=== PATIENT | male | born 1955 | race Caucasian/White ===

== ENCOUNTER 2018-06-14 19:04 | Emergency (ER) | payer OTHER, SELFPAY ==
--- NOTE | 2018-06-14 19:06 | W.ED.GENAD ---
Discharge Plan Disposition Patient Disposition: HOME Condition: Stable Discharge Details Chief Complaint: Orthopedic Clinical Impression: Contusion of elbow, left Primary Care Provider: Rossy Garcia ED Provider: [facility] Home Meds and New Rx's Prescriptions: No Action Atorvastatin Calcium 20 MG tablet 20 mg PO DAILY Qty: 90 RF: 3 imipramine HCl 25 MG tablet 25 mg PO HS Qty: 90 RF: 3 codeine-guaifenesin [Guaifenesin AC] 473 ML liquid 5 - 10 ml PO Q6H PRN Qty: 240 RF: 0 Discharge Instructions Instructions: Contusion in Adults (ED) Additional Instructions: if pain continues in one week see your primary care provider you can take 1000mg tylenol and 600mg ibuprofen every 6 hours for pain as needed Medical Decision Making 62 yo male was at work at the [employer], 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 Did not strike his head or have loc, no headache or neck pain even on rom. Had no preceding symptoms to suggest presyncope vs syncope, states purely mechanical fall. He has pain over lateral left elbow, no palpable or visible deformity .Has full rom without swelling and intact sensation. Doubt fx but will xray to eval for this xray negative on my read, will d/c and advised f/u with pcp if still in pain in a week Differential Diagnosis contusion, fx HPI General Mode of arrival: ambulatory. Date/Time Provider Initiated Documentation: 06/14/18 19:06. Limitations to Documentation: no limitations. Information obtained by: patient. History of Present Illness 62 year old M presents to the emergency department with the chief complaint of left elbow pain, described as mild, Quality is described as aching, and is localized to the left and upper extremity. Patient reports no radiation. Patient started experiencing this hour(s) (1) and it has been constant. No relieving factors improve symptom(s), No exacerbating factors reported . Patient notes no other symptoms.. Patient did receive the following treatments prior to arrival, none Related Data Home Medications Medication Instructions Recorded Confirmed imipramine HCl 25 mg PO HS #90 tab-cap 07/21/17 codeine-guaifenesin [Guaifenesin 5 - 10 ml PO Q6H PRN #240 ml 08/02/17 Ac Cough Syrup] Previous Rx's Medication Instructions Recorded imipramine HCl 25 mg PO HS #90 tab-cap 07/21/17 codeine-guaifenesin [Guaifenesin 5 - 10 ml PO Q6H PRN #240 ml 08/02/17 Ac Cough Syrup] Allergies Allergy/AdvReac Type Severity Reaction Status Date / Time No Known Allergies Allergy Unverified 09/16/17 11:15 Review of Systems Review of Systems All systems reviewed & are unremarkable except as noted in HPI and below Constitutional Denies chills, Denies fever(s) and Denies weakness Cardiovascular Denies chest pain and Denies dyspnea Respiratory Denies dyspnea Gastrointestinal Denies abdominal pain, Denies nausea and Denies vomiting Integumentary/Breasts Denies rash Neurologic Denies weakness PFS Medical History Cholecystitis with cholelithiasis and choledocholithiasis (04/26/16) GERD (gastroesophageal reflux disease) HLD (hyperlipidemia) IFG (impaired fasting glucose) Pneumonia (~1989) Surgical History Cholecystectomy (04/28/16) Colonoscopy - IV Sedation (10/07/16) ERCP (04/27/16) Transurethral prostatectomy (05/21/16) Family History Mother Stroke MS (multiple sclerosis) Father Heart disease Myocardial infarction Lung cancer Brother Diabetes Maternal Uncle Diabetes Maternal Uncle Neoplasm Maternal Uncle Neoplasm Social History Smoking/Tobacco Use Status: Never Alcohol Intake: current Drug use: Never Substance use type: marijuana Do you feel safe in your relationship?: Yes Exam Const General: no acute distress Orientation: alert HENMT Head: normal to inspection Ears: external ears normal General nose exam: external nose normal Mouth: moist mucous membranes Eyes General: appearance normal, both eyes and all related structures Neck Neck: normal visual inspection Resp Effort & Inspection: normal respiratory effort and able to speak in complete sentences Cardio Rate: regular rate Skin General skin exam: no rashes or lesions noted Neuro General: alert and oriented x3 Extrem General: normal to inspection Psych Mental Status: mental status grossly normal
[2018-06-14 19:08] VITALS: BP 138/95; PULSE 95; RESP 18; TEMP 37; O2SAT 98
--- NOTE | 2018-06-14 19:10 | DI.RAD_ITS ---
SYMPTOM/DIAGNOSIS: PAIN, S/P FALL LEFT ELBOW: There is no evidence of a fracture or dislocation.
--- NOTE | 2018-06-14 19:13 | ED.GENADUL_ITS ---
Discharge Plan Disposition Patient Disposition: HOME Condition: Stable Discharge Details Chief Complaint: Orthopedic Clinical Impression: Contusion of elbow, left Primary Care Provider: Rossy Garcia ED Provider: [facility] Home Meds and New Rx's Prescriptions: No Action Atorvastatin Calcium 20 MG tablet 20 mg PO DAILY Qty: 90 RF: 3 imipramine HCl 25 MG tablet 25 mg PO HS Qty: 90 RF: 3 codeine-guaifenesin [Guaifenesin AC] 473 ML liquid 5 - 10 ml PO Q6H PRN Qty: 240 RF: 0 Discharge Instructions Instructions: Contusion in Adults (ED) Additional Instructions: if pain continues in one week see your primary care provider you can take 1000mg tylenol and 600mg ibuprofen every 6 hours for pain as needed Medical Decision Making 62 yo male was at work at the [employer], 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 Did not strike his head or have loc, no headache or neck pain even on rom. Had no preceding symptoms to suggest presyncope vs syncope, states purely mechanical fall. He has pain over lateral left elbow, no palpable or visible deformity .Has full rom without swelling and intact sensation. Doubt fx but will xray to eval for this xray negative on my read, will d/c and advised f/u with pcp if still in pain in a week Differential Diagnosis contusion, fx HPI General Mode of arrival: ambulatory . Date/Time Provider Initiated Documentation: 06/14/18 19:06 . Limitations to Documentation: no limitations . Information obtained by: patient . History of Present Illness 62 year old M presents to the emergency department with the chief complaint of left elbow pain, described as mild, Quality is described as aching, and is localized to the left and upper extremity. Patient reports no radiation. Patient started experiencing this hour(s) (1) and it has been constant. No relieving factors improve symptom(s), No exacerbating factors reported . Patient notes no other symptoms.. Patient did receive the following treatments prior to arrival, none Related Data Home Medications Medication Instructions Recorded Confirmed imipramine HCl 25 mg PO HS #90 tab-cap 07/21/17 codeine-guaifenesin [Guaifenesin 5 - 10 ml PO Q6H PRN #240 ml 08/02/17 Ac Cough Syrup] Previous Rx's Medication Instructions Recorded imipramine HCl 25 mg PO HS #90 tab-cap 07/21/17 codeine-guaifenesin [Guaifenesin 5 - 10 ml PO Q6H PRN #240 ml 08/02/17 Ac Cough Syrup] Allergies Allergy/AdvReac Type Severity Reaction Status Date / Time No Known Allergies Allergy Unverified 09/16/17 11:15 Review of Systems Review of Systems All systems reviewed & are unremarkable except as noted in HPI and below Constitutional Denies chills, Denies fever(s) and Denies weakness Cardiovascular Denies chest pain and Denies dyspnea Respiratory Denies dyspnea Gastrointestinal Denies abdominal pain, Denies nausea and Denies vomiting Integumentary/Breasts Denies rash Neurologic Denies weakness PFS Medical History Cholecystitis with cholelithiasis and choledocholithiasis (04/26/16) GERD (gastroesophageal reflux disease) HLD (hyperlipidemia) IFG (impaired fasting glucose) Pneumonia (~1989) Surgical History Cholecystectomy (04/28/16) Colonoscopy - IV Sedation (10/07/16) ERCP (04/27/16) Transurethral prostatectomy (05/21/16) Family History Mother Stroke MS (multiple sclerosis) Father Heart disease Myocardial infarction Lung cancer Brother Diabetes Maternal Uncle Diabetes Maternal Uncle Neoplasm Maternal Uncle Neoplasm Social History Smoking/Tobacco Use Status: Never Alcohol Intake: current Drug use: Never Substance use type: marijuana Do you feel safe in your relationship?: Yes Exam Const General: no acute distress Orientation: alert HENMT Head: normal to inspection Ears: external ears normal General nose exam: external nose normal Mouth: moist mucous membranes Eyes General: appearance normal, both eyes and all related structures Neck Neck: normal visual inspection Resp Effort & Inspection: normal respiratory effort and able to speak in complete sentences Cardio Rate: regular rate Skin General skin exam: no rashes or lesions noted Neuro General: alert and oriented x3 Extrem General: normal to inspection Psych Mental Status: mental status grossly normal
--- NOTE | 2018-06-14 19:40 | DI.VRAD_ITS ---
EXAM: XR Left Elbow Complete, 3 or more Views EXAM DATE/TIME: 06/14/2018 7:11 PM CLINICAL HISTORY: 62 years old, male; Signs and symptoms; Other: Pain S/P fall TECHNIQUE: Imaging protocol: XR Left elbow, 3 or more views. COMPARISON: No relevant prior studies available. FINDINGS: Bones/joints: Osseous anatomic alignment is well preserved. No acutely displaced fracture or dislocation. Joint spaces are well preserved. Soft tissues: No significant soft tissue swelling. No displacement of the fat pads. IMPRESSION: Negative for acute skeletal pathology. Dictated and Authenticated by: Blake Hardy MD. Ordering:MARY Funes MD
== END 2018-06-14 19:36 | disposition home or self-care (01) ==
LOC: ER 20:19
PROVIDERS: Emergency Provider Emergency Medicine; PCP Nurse Practitioner Family
DX: S50.02XA Contusion of left elbow, initial encounter (principal); W01.0XXA Fall on same level from slipping, tripping and stumbling without subsequent striking against object, initial encounter; Y99.0 Civilian activity done for income or pay
CPT/HCPCS: 99283; 73080; 99282

== ENCOUNTER 2018-08-04 10:02 | Outpatient (CLI) | payer MEDICAID, SELFPAY ==
[2018-08-04 10:49] LABS: Hemoglobin A1C 5.4 % (4.5-6.2)
[2018-08-04 11:22] LABS: Calculated LDL 87; Cholesterol 161 mg/dL (50-200); HDL Cholesterol 60 mg/dL (40-60); Triglyceride 71 mg/dL (30-150)
== END 2018-08-04 10:22 ==
PROVIDERS: PCP Nurse Practitioner Family; Visit Provider Nurse Practitioner Family
DX: E78.5 Hyperlipidemia, unspecified (principal); R73.01 Impaired fasting glucose
CPT/HCPCS: 36415; 80061; 83721; 83036

== ENCOUNTER 2019-11-23 02:57 | Outpatient (CLI) | payer OTHER, MEDICAID, SELFPAY ==
[2019-11-23 14:07] LABS: Anion Gap 4.9 mmol/L (3-11); BUN 22 mg/dL (7-18); CO2 29.1 mmol/L (21.0-32.0); CREATININE 1.06 mg/dL (0.70-1.30); Calcium 8.9 mg/dL (8.5-10.1); Calculated LDL 74 mg/dL (<100); Chloride 105 mmol/L (98-107); Cholesterol 137 mg/dL (<200); Glucose 101 mg/dL (74-106); HDL Cholesterol 54 mg/dL (40-60); Potassium 4.5 mmol/L (3.5-5.1); Sodium 139 mmol/L (136-145); Triglyceride 46 mg/dL (<150)
[2019-11-23 14:29] LABS: Hemoglobin A1C 5.2 % (<5.7)
[2019-11-24 10:03] LABS: HIV-1/2 Ag & Ab Screen Negative (Negative)
[2019-11-24 10:16] LABS: Hepatitis C Ab w Rflx HCV PCR Negative (Negative)
== END 2019-11-23 03:17 ==
PROVIDERS: PCP Nurse Practitioner Family; Visit Provider Nurse Practitioner Family
DX: E78.5 Hyperlipidemia, unspecified (principal); R73.01 Impaired fasting glucose; Z11.4 Encounter for screening for human immunodeficiency virus [HIV]; Z11.59 Encounter for screening for other viral diseases
CPT/HCPCS: 80048; 80061; 86803; 87389; 83036

== ENCOUNTER 2020-12-04 02:45 | Outpatient (CLI) | payer OTHER, SELFPAY ==
[2020-12-04 07:59] LABS: HCT 44.4 % (40.0-50.0); HGB 15.2 g/dL (13.5-17.5); MCH 33.7 pg (27.0-33.0); MCHC 34.2 % (32.0-36.0); MCV 98.4 fL (80-95); MPV 9.4 fL (8.0-11.0); Platelet Count 194 10^3/uL (130-400); RBC 4.51 10^6/uL (4.36-5.78); WBC 6.14 10^3/uL (4.4-10.8)
[2020-12-04 08:50] LABS: Hemoglobin A1C 5.3 % (<5.7)
[2020-12-04 09:06] LABS: Anion Gap -3.7 mmol/L (3-11); BUN 15 mg/dL (7-18); CO2 31.7 mmol/L (21.0-32.0); Calcium 8.8 mg/dL (8.5-10.1); Calculated LDL 69 mg/dL (<100); Chloride 106 mmol/L (98-107); Cholesterol 136 mg/dL (<200); Glucose 103 mg/dL (74-106); HDL Cholesterol 56 mg/dL (40-60); Potassium 4.1 mmol/L (3.5-5.1); Sodium 134 mmol/L (136-145); Triglyceride 58 mg/dL (<150)
== END 2020-12-04 02:46 | disposition home or self-care (01) ==
LOC: LBO 02:45
PROVIDERS: PCP Nurse Practitioner Family; Visit Provider Nurse Practitioner Family
DX: E78.5 Hyperlipidemia, unspecified (principal); R73.01 Impaired fasting glucose; Z51.81 Encounter for therapeutic drug level monitoring
CPT/HCPCS: 36415; 80048; 80061; 85027; 83036

== ENCOUNTER 2021-12-11 02:34 | Outpatient (CLI) | payer OTHER, SELFPAY ==
[2021-12-11 08:24] LABS: Anion Gap 9.5 mmol/L (3-11); BUN 24 mg/dL (7-18); CO2 22.5 mmol/L (21.0-32.0); CREATININE 1.2 mg/dL (0.70-1.30); Calcium 8.5 mg/dL (8.5-10.1); Calculated LDL 49 mg/dL (<100); Chloride 108 mmol/L (98-107); Cholesterol 112 mg/dL (<200); Estimated GFR 67.11 (mL/min/1.73m2); Glucose 110 mg/dL (74-106); HDL Cholesterol 50 mg/dL (40-60); Potassium 3.8 mmol/L (3.5-5.1); Sodium 140 mmol/L (136-145); Triglyceride 67 mg/dL (<150)
== END 2021-12-11 02:35 | disposition home or self-care (01) ==
LOC: LBO 02:34
PROVIDERS: PCP Nurse Practitioner Family; Visit Provider Nurse Practitioner Family
DX: Z13.1 Encounter for screening for diabetes mellitus (principal); E78.5 Hyperlipidemia, unspecified
CPT/HCPCS: 36415; 80048; 80061

== ENCOUNTER 2022-04-19 16:35 | Emergency (ER) | payer OTHER, SELFPAY ==
[2022-04-19 16:42] VITALS: BP 146/82; PULSE 73; RESP 18; TEMP 36.9; O2SAT 97
--- NOTE | 2022-04-19 16:47 | W.ED.GENAD ---
Discharge Plan Disposition Patient Disposition: Home Condition: Stable Discharge Details Clinical Impression: Abdominal wall hernia Primary Care Provider: Rossy Garcia ED Provider: Brigido Figueredo Home Meds and New Rx's Prescriptions: Continued aspirin 81 mg tablet,delayed release (DR/EC) 81 mg PO DAILY dorzolamide-timolol [Cosopt] 22.3-6.8 mg/mL drops 1 drp ophthalmic (eye) BID Rx Instructions: For use in both eyes Lumigan 0.01 % drops 1 drp ophthalmic (eye) DAILY Rx Instructions: For use in both eyes bromfenac 0.07 % drops 1 drp ophthalmic (eye) BID Rx Instructions: For use in the left eye loteprednol etabonate [Lotemax] 0.5 % drops,suspension 1 drp ophthalmic (eye) BID Rx Instructions: For use in the left eye. 1 drop BID x 2 wks brimonidine 0.1 % drops 1 drp ophthalmic (eye) BID Rx Instructions: For use in both eyes atorvastatin 20 mg tablet 20 mg PO DAILY Qty: 90 3RF Discharge Instructions Instructions: Ventral Hernia (ED) Additional Instructions: CT reveals what appears to be a small hernia, without evidence of incarceration. Please watch for new or worsening symptoms and return to the ER for any concerns. As we discussed if the hernia becomes hard, more painful, you are unable to reduce it, this is a reason to come directly back to the ER. Otherwise I strongly recommend that you contact our outpatient surgical team to discuss your ER visit and need for outpatient reevaluation. Referrals: Tito Martinez MD [ [facility] STAFF PHYSICIAN] - Medical Decision Making 66-year-old gentleman reports that while at work today lifting, bending, he developed periumbilical discomfort, felt a lump. He has never experienced this before. Clinically it appears as though he has a ventral abdominal hernia which is easily reduced with lying flat. Given the suddenness of the discomfort and hernia, will obtain routine laboratory values and CT imaging for further evaluation. Laboratory values are unremarkable for any obvious emergent process. CT imaging does reveal a question of a tiny periumbilical supraumbilical fat-containing hernia without evidence of incarceration. Clinically correlating, this would seem to be the most likely diagnosis. Again no evidence of incarceration. Abdomen is soft, nontender. We discussed the difference between a reducible hernia versus strangulated versus incarcerated. Strict return precautions were provided. Outpatient surgical referral provided. Standard discharge and return precautions were provided. Patient understands, is agreeable to this plan, and has no additional questions or concerns upon discharge. This documentation was generated using Check I'm Here system, please disregard any oddities of phrase or misspellings. Medical Records Medical records reviewed: Yes I reviewed the patient's medical records. Imaging Data Radiologic Study: Attestation: I personally reviewed and interpreted this imaging study as follows: Imaging: CT Scan Radiologist's impression: PROCEDURE INFORMATION: Exam: CT Abdomen And Pelvis With Contrast Exam date and time: 04/19/2022 6:45 PM Age: 66 years old Clinical indication: Other: Hernia just superior to umbilicus? ; Prior surgery; Surgery date: 6+ months; Surgery type: Prostatectomy & cholecystectomy TECHNIQUE: Imaging protocol: Computed tomography of the abdomen and pelvis with contrast. Contrast material: OMNIPAQUE 350; Contrast volume: 100 ml; Contrast route: INTRAVENOUS (IV); COMPARISON: CT ABD PELVIS WITH CONTRAST 04/26/2016 3:05 AM FINDINGS: Liver: Hepatomegaly and diffuse fatty infiltration. Faint hypodensity in the left lobe too small to characterize. Gallbladder and bile ducts: Prior cholecystectomy. No ductal dilation. Pancreas: Normal. No ductal dilation. Spleen: Lobulated in appearance. No splenomegaly. Adrenal glands: Normal. No mass. Kidneys and ureters: Question peripelvic cysts in the kidneys bilaterally. No ureteral dilatation Faint hypodensity in the lower pole of the left kidney too small to characterize Stomach and bowel: Colonic diverticulosis. No obstruction. No mucosal thickening. Appendix: No evidence of appendicitis. Intraperitoneal space: Unremarkable. No free air. No significant fluid collection. Vasculature: Unremarkable. No abdominal aortic aneurysm. Lymph nodes: Unremarkable. No enlarged lymph nodes. Urinary bladder: Unremarkable as visualized. Reproductive: Unremarkable as visualized.Bones/joints: Degenerative changes in the spine. No acute fracture. Soft tissues: Tiny fat containing hernia in the periumbilical/supraumbilical abdominal wall sagittal image 70 IMPRESSION: No acute findings. Question tiny periumbilical/supraumbilical fat containing hernia as described without CT evidence for incarceration Nonurgent findings as noted Lab Data Lab results reviewed: Yes I reviewed the patient's lab results. Labs: Laboratory Tests Range/Units 04/19/22 04/19/22 04/19/22 17:30 17:30 17:30 WBC (4.4-10.8) 10^3/uL 7.92 RBC (4.36-5.78) 10^6/uL 4.45 Hgb (13.5-17.5) g/dL 14.7 Hct (40.0-50.0) % 42.5 MCV (80-95) fL 96 H MCH (27.0-33.0) pg 33.0 MCHC (32.0-36.0) % 34.6 RDW (11.8-14.1) % 12.1 Plt Count (130-400) 10^3/uL 225 MPV (8.0-11.0) fL 9.8 Immature Gran % 0.3 Neutrophils % 58.5 Lymphocytes % 28.8 Monocytes % 7.2 Eosinophils % 3.9 Basophils % 1.3 Nucleated RBC % (0.0-0.3) % 0.0 Absolute Neutrophils (1.2-6.7) 10^3/uL 4.64 Absolute Lymphocytes (1.2-3.4) 10^3/uL 2.28 Absolute Monocytes (0.1-0.8) 10^3/uL 0.57 Absolute Eosinophils (0.0-0.7) 10^3/uL 0.31 Absolute Basophils (0.0-0.2) 10^3/uL 0.10 VBG Lactate (0.6-1.4) mmol/L 0.7 Sodium (136-145) mmol/L 142 Potassium (3.5-5.1) mmol/L 3.8 Chloride (98-107) mmol/L 106 Carbon Dioxide (21.0-32.0) mmol/L 26.7 Anion Gap (3-11) mmol/L 9.3 BUN (7-18) mg/dL 17 Creatinine (0.70-1.30) mg/dL 1.0 Est GFR (CKD-EPI 2020) (mL/min/1.73m2) 83.52 Glucose (74-106) mg/dL 94 Calcium (8.5-10.1) mg/dL 9.4 Total Bilirubin (0.2-1.0) mg/dL 0.8 AST (15-37) U/L 27 ALT (16-63) U/L 34 Alkaline Phosphatase (46-116) U/L 67 Total Protein (6.4-8.2) g/dL 7.1 Albumin (3.4-5.0) g/dL 3.9 Lipase (16-77) U/L 61 Urine Color (Yellow) Urine Clarity (Clear) Urine pH (5-8) Ur Specific Ralph (1.005-1.025) Urine Protein (Negative) mg/dL Urine Ketones (Negative) mg/dL Urine Blood (Negative) Urine Nitrite (Negative) Urine Bilirubin (Negative) Urine Urobilinogen (Up to 0.2) mg/dL Ur Leukocyte Esterase (Negative) Urine RBC (0-2) HPF Urine WBC (0-5) HPF Ur Epithelial Cells (Negative) HPF Urine Crystals (Negative) HPF Urine Bacteria (Negative) HPF Urine Casts (Negative) LPF Urine Mucus (Negative) Urine Other (Negative) Ur Culture Indicated? Urine Glucose (Negative) mg/dL Range/Units 04/19/22 18:05 WBC (4.4-10.8) 10^3/uL RBC (4.36-5.78) 10^6/uL Hgb (13.5-17.5) g/dL Hct (40.0-50.0) % MCV (80-95) fL MCH (27.0-33.0) pg MCHC (32.0-36.0) % RDW (11.8-14.1) % Plt Count (130-400) 10^3/uL MPV (8.0-11.0) fL Immature Gran % Neutrophils % Lymphocytes % Monocytes % Eosinophils % Basophils % Nucleated RBC % (0.0-0.3) % Absolute Neutrophils (1.2-6.7) 10^3/uL Absolute Lymphocytes (1.2-3.4) 10^3/uL Absolute Monocytes (0.1-0.8) 10^3/uL Absolute Eosinophils (0.0-0.7) 10^3/uL Absolute Basophils (0.0-0.2) 10^3/uL VBG Lactate (0.6-1.4) mmol/L Sodium (136-145) mmol/L Potassium (3.5-5.1) mmol/L Chloride (98-107) mmol/L Carbon Dioxide (21.0-32.0) mmol/L Anion Gap (3-11) mmol/L BUN (7-18) mg/dL Creatinine (0.70-1.30) mg/dL Est GFR (CKD-EPI 2020) (mL/min/1.73m2) Glucose (74-106) mg/dL Calcium (8.5-10.1) mg/dL Total Bilirubin (0.2-1.0) mg/dL AST (15-37) U/L ALT (16-63) U/L Alkaline Phosphatase (46-116) U/L Total Protein (6.4-8.2) g/dL Albumin (3.4-5.0) g/dL Lipase (16-77) U/L Urine Color (Yellow) Yellow Urine Clarity (Clear) Clear Urine pH (5-8) 5.5 Ur Specific Ralph (1.005-1.025) >= 1.030 H Urine Protein (Negative) mg/dL Negative Urine Ketones (Negative) mg/dL Negative Urine Blood (Negative) Trace-intact H Urine Nitrite (Negative) Negative Urine Bilirubin (Negative) Negative Urine Urobilinogen (Up to 0.2) mg/dL 0.2 Ur Leukocyte Esterase (Negative) Negative Urine RBC (0-2) HPF 0-2 Urine WBC (0-5) HPF 0-2 Ur Epithelial Cells (Negative) HPF Few Urine Crystals (Negative) HPF Negative Urine Bacteria (Negative) HPF Negative Urine Casts (Negative) LPF Negative Urine Mucus (Negative) Negative Urine Other (Negative) Negative Ur Culture Indicated? No Urine Glucose (Negative) mg/dL Negative HPI General Mode of arrival: ambulatory. Date/Time Provider Initiated Documentation: 04/19/22 16:37. Limitations to Documentation: no limitations. Information obtained by: patient and family. History of Present Illness 66 year old M presents to the emergency department with the chief complaint of Abd pain/lump, described as mild, with intensity rated at 2. Quality is described as aching, and is localized to the abdomen. Patient reports no radiation. Patient started experiencing this hour(s) (6) and it has been intermittent. No relieving factors improve symptom(s), No exacerbating factors reported . Patient notes no other symptoms.. Patient did receive the following treatments prior to arrival, none Related Data Home Medications Medication Instructions Recorded Confirmed aspirin 81 mg tablet,delayed 81 mg PO DAILY 08/10/18 04/07/22 release atorvastatin 20 mg tablet 20 mg PO DAILY #90 tab-caps 12/24/21 04/07/22 bimatoprost 0.01 % eye drops 1 drp ophthalmic (eye) DAILY 04/07/22 04/07/22 (Lumigan) brimonidine 0.1 % eye drops 1 drp ophthalmic (eye) BID 04/07/22 04/07/22 bromfenac 0.07 % eye drops 1 drp ophthalmic (eye) BID 04/07/22 04/07/22 dorzolamide 22.3 mg-timolol 6.8 1 drp ophthalmic (eye) BID Glaucoma 04/07/22 04/07/22 mg/mL eye drops (Cosopt) loteprednol etabonate 0.5 % eye 1 drp ophthalmic (eye) BID 04/07/22 04/07/22 drops,suspension (Lotemax) Previous Rx's Medication Instructions Recorded atorvastatin 20 mg tablet 20 mg PO DAILY #90 tab-caps 12/24/21 Allergies Allergy/AdvReac Type Severity Reaction Status Date / Time No Known Allergies Allergy Verified 04/07/22 14:48 General Stated Complaint: Abd Prob CAYDEN: 3 Review of Systems Constitutional Constitutional: Denies fever(s) and Denies weakness Cardiovascular Cardiovascular: Denies chest pain and Denies dyspnea Respiratory Respiratory: Denies cough and Denies dyspnea Gastrointestinal Gastrointestinal: Reports abdominal pain, Denies constipation, Denies diarrhea, Denies nausea and Denies vomiting Genitourinary Genitourinary: Denies dysuria Musculoskeletal Musculoskeletal: Denies back pain Integumentary/Breasts Skin/Breast: Denies rash Neurologic Neurologic: Denies weakness PFSH All Active Problems (Updated 04/19/22 @ 19:14 by RACHEL Devine) Abdominal wall hernia (Acute) BPPV (benign paroxysmal positional vertigo) (Acute) Glaucoma (Chronic) Urinary retention (Acute 05/04/16) Right epididymitis (Acute 05/04/16) Post-void dribbling (Acute 11/20/16) IFG (impaired fasting glucose) (Chronic 07/08/16) Hyperlipidemia (Chronic 07/08/16) 07/2018 labs: good response to moderate intensity statin, continue Medical History Choledocholithiasis with cholecystitis Choledocholithiasis with obstruction GERD (gastroesophageal reflux disease) Pneumonia (~1989) Surgical History Colonoscopy - IV Sedation (10/07/16) ERCP (04/27/16) [facility] Status post cholecystectomy (~04/28/16) Transurethral prostatectomy (05/21/16) [facility] Dr. Ag Family History Mother , CVA at age 65. Stroke MS (multiple sclerosis) Depression Father , Lung CA at age 75. Heart disease Myocardial infarction Lung cancer Smoker Brother Diabetes Depression Heart disease Maternal Uncle Diabetes Maternal Uncle , Prostate CA at age 72. Prostate cancer Maternal Uncle No problems noted. Social History Smoking/Tobacco Use Status: Former Tobacco Use Quit Date: 03/01/88 Tobacco: How many years used: 8 Second Hand Exposure: No Smoking risk assessment performed?: Yes Alcohol Intake: current Alcohol Intake frequency: a few times a week Details: 2-16 oz. 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 Pets and animals: Yes Pets and animals: cat(s) and dog(s) Sexually active: Yes Do you think of yourself as: straight/heterosexual Current gender identity: male What is your relationship status?: living with partner How often do you talk on the phone with friends or family?: decline to answer How often do you get together with friends or relatives?: decline to answer How often do you attend quaker or confucianism services?: decline to answer Do you belong to any clubs or organized social groups?: no Panel score (0-1 are the most socially isolated patients): 1 What type of physical activity do you participate in: none Kavya/Scientology: Taoism Seatbelt use: always Helmet use: No Drive intox or ride w/intox after school driver: No Water heater temp set <120 deg: Yes Working smoke detector in home: Yes Fire extinguisher in home: Yes Carbon monox detector in home: Yes Firearms in home: No Do you feel safe at home: Yes Do you feel safe in your relationship?: Yes Exam Const General: cooperative, healthy appearing, comfortable and no acute distress Orientation: alert and awake [facility] Head: normal to inspection, normocephalic and atraumatic Face and sinus: normal facial exam Mouth: moist mucous membranes Eyes Conjunctivae: conjunctivae normal Neck Neck: normal visual inspection, full ROM, no meningeal signs, trachea midline and supple Resp Effort & Inspection: normal respiratory effort and able to speak in complete sentences Auscultation: clear to auscultation bilaterally Cardio Rate: regular rate Rhythm: regular rhythm GI Inspection: normal to inspection Palpation: soft, not firm, no guarding, no pulsatile masses and tender suprapubicly (Superior, tender, question hernia while standing, reduces when laying down) Auscultation: normal bowel sounds Back/Spine/Pelvis Back: no CVA tenderness and No back tenderness Skin General skin exam: no rashes or lesions noted Neuro General: patient alert, patient awake, patient oriented x3, moves all extremities and no focal motor deficits Cognition: normal cognition Speech: speech normal Gait: normal gait Motor: muscle tone normal throughout Sensory Exam: no sensory deficits noted Extrem General: normal to inspection, full ROM and capillary refill normal Psych Appearance: grossly normal Mental Status: mental status grossly normal Course Vital Signs Vital signs: Vital Signs Temperature 36.9 C 04/19/22 16:42 Pulse 73 04/19/22 16:42 Respiratory Rate 18 04/19/22 16:42 Blood Pressure 146/82 H 04/19/22 16:42 Pulse Oximetry 97 04/19/22 16:42 Temperature 36.9 C 04/19/22 16:42 Temperature Source Oral 04/19/22 16:42 Pulse 73 04/19/22 16:42 Respiratory Rate 18 04/19/22 16:42 Blood Pressure 146/82 H 04/19/22 16:42 Pulse Oximetry 97 04/19/22 16:42 Oxygen Delivery Method Room Air 04/19/22 16:42 Oxygen Flow Rate 0 04/19/22 16:42
--- NOTE | 2022-04-19 17:05 | DI.CT_ITS ---
Exam(s) CT ABDOMEN PELVIS W EXAM: CT ABDOMEN PELVIS W CLINICAL HISTORY: hernia just superior to umbilicus?. TECHNIQUE: Imaging Protocol: Axial computed tomography images with coronal and sagittal reformatted images were created and reviewed CONTRAST MATERIAL: Intravenous: Omnipaque 350 Contrast volume:100 ml Oral: no COMPARISON: US ABDOMEN ULTRASOUND (P) from 04/26/2016 CT ABD PELVIS WITH CONTRAST from 04/26/2016 FINDINGS: ABDOMEN: Lung Bases: Normal where visualized. Liver: Normal density. No measurable mass. Gallbladder and biliary tract: No radiodense calculus or dilation. Pancreas: Normal density, no abnormal calcifications or inflammatory process. Spleen: Normal. Kidneys: Normal size, contour and axis. No radiodense stones or obstructive uropathy. Parapelvic cys ts. No suspicious masses seen. Adrenal glands: No masses seen. Abdominal Aorta: Abdominal portion non-dilated. Soft tissues: Tiny fatty containing hernia above the umbilicus. PELVIS: Bladder: No gross wall thickening. No calculi.No focal mass. Bowel: Diverticulosis sigmoid region. No evidence of diverticulitis no obstruction. No bowel wall thickening. Appendix normal. Peritoneal cavity: No ascites, collection or mesenteric inflammatory response. Bones: Within normal limits for age. Reproductive organs: Within normal limits. Lymph nodes: Unremarkable. Impression: Tiny fatty containing hernia above the level of the umbilicus. RADIATION DOSE DELIVERED: 1,006.31mGy.cm Total DLP DATA REPOSITORY: All CT scans at this facility are submitted to the National Radiology Data Registry (NRDR) Dose Index Registry (DIR) with the [employer] (ACR). RADIATION OPTIMIZATION: All CT scans at this facility use at least one of these dose optimization te chniques: automated exposure control; mA and/or kV adjustment per patient size (includes targeted exa ms where dose is matched to clinical indication); or iterative reconstruction.
[2022-04-19 17:41] LABS: Abs Immature Grans 0.02 10^3/uL (0.0-0.06); Absolute Eosinophil Count 0.31 10^3/uL (0.0-0.7); Absolute Lymphocyte Count 2.28 10^3/uL (1.2-3.4); Absolute Monocyte Count 0.57 10^3/uL (0.1-0.8); Absolute Neutrophil Count 4.64 10^3/uL (1.2-6.7); Basophils % 1.3; Eosinophils % 3.9; HCT 42.5 % (40.0-50.0); HGB 14.7 g/dL (13.5-17.5); Immature Grans % 0.3; Lactate 0.7 mmol/L (0.6-1.4); Lymphocytes % 28.8; MCHC 34.6 % (32.0-36.0); MCV 96 fL (80-95); MPV 9.8 fL (8.0-11.0); Monocytes % 7.2; Neutrophils % 58.5; Platelet Count 225 10^3/uL (130-400); RBC 4.45 10^6/uL (4.36-5.78); RDW 12.1 % (11.8-14.1); RDW-SD 41.7 fL; WBC 7.92 10^3/uL (4.4-10.8)
[2022-04-19 17:58] LABS: ALT 34 U/L (16-63); AST 27 U/L (15-37); Albumin 3.9 g/dL (3.4-5.0); Alkaline Phosphatase 67 U/L (46-116); Anion Gap 9.3 mmol/L (3-11); BUN 17 mg/dL (7-18); Bilirubin, Total 0.8 mg/dL (0.2-1.0); CO2 26.7 mmol/L (21.0-32.0); Calcium 9.4 mg/dL (8.5-10.1); Chloride 106 mmol/L (98-107); Estimated GFR 83.52 (mL/min/1.73m2); Glucose 94 mg/dL (74-106); Lipase 61 U/L (16-77); Potassium 3.8 mmol/L (3.5-5.1); Sodium 142 mmol/L (136-145); Total Protein 7.1 g/dL (6.4-8.2)
[2022-04-19 18:15] LABS: Bilirubin Negative (Negative); Blood Trace-intact (Negative); Clarity Clear (Clear); Glucose Negative (Negative); Ketones Negative (Negative); Leukocyte Esterase Negative (Negative); Nitrite Negative (Negative); Specific Gravity >= 1.030 (1.005-1.025); Urobilinogen 0.2 mg/dL (Up to 0.2); pH 5.5 (5-8)
[2022-04-19 18:22] LABS: Bacteria Negative HPF (Negative); C & S Indicated? No; Casts Negative LPF (Negative); Crystals Negative HPF (Negative); Epithelial Cells Few HPF (Negative); Mucus Negative (Negative); Other Cells Negative (Negative); RBC 0-2 HPF (0-2); WBC 0-2 HPF (0-5)
[2022-04-19 18:30] VITALS: BP 128/79; PULSE 59; RESP 16; TEMP 36.7; O2SAT 97
[2022-04-19] MEDS: Normal Saline - Diluent 50 ML VIAL IJ (18:44)
[2022-04-19] MEDS: Omnipaque 350 MG/ML 100 ML BTL IJ (18:44)
--- NOTE | 2022-04-19 19:02 | DI.VRAD_ITS ---
PROCEDURE INFORMATION: Exam: CT Abdomen And Pelvis With Contrast Exam date and time: 04/19/2022 6:45 PM Age: 66 years old Clinical indication: Other: Hernia just superior to umbilicus? ; Prior surgery; Surgery date: 6+ months; Surgery type: Prostatectomy \T\ cholecystectomy TECHNIQUE: Imaging protocol: Computed tomography of the abdomen and pelvis with contrast. Contrast material: OMNIPAQUE 350; Contrast volume: 100 ml; Contrast route: INTRAVENOUS (IV); COMPARISON: CT ABD PELVIS WITH CONTRAST 04/26/2016 3:05 AM FINDINGS: Liver: Hepatomegaly and diffuse fatty infiltration. Faint hypodensity in the left lobe too small to characterize. Gallbladder and bile ducts: Prior cholecystectomy. No ductal dilation. Pancreas: Normal. No ductal dilation. Spleen: Lobulated in appearance. No splenomegaly. Adrenal glands: Normal. No mass. Kidneys and ureters: Question peripelvic cysts in the kidneys bilaterally. No ureteral dilatation Faint hypodensity in the lower pole of the left kidney too small to characterize Stomach and bowel: Colonic diverticulosis. No obstruction. No mucosal thickening. Appendix: No evidence of appendicitis. Intraperitoneal space: Unremarkable. No free air. No significant fluid collection. Vasculature: Unremarkable. No abdominal aortic aneurysm. Lymph nodes: Unremarkable. No enlarged lymph nodes. Urinary bladder: Unremarkable as visualized. Reproductive: Unremarkable as visualized. Bones/joints: Degenerative changes in the spine. No acute fracture. Soft tissues: Tiny fat containing hernia in the periumbilical/supraumbilical abdominal wall sagittal image 70 IMPRESSION: No acute findings. Question tiny periumbilical/supraumbilical fat containing hernia as described without CT evidence for incarceration Nonurgent findings as noted Dictated and Authenticated by: Domingo Valle MD. Ordering:ANDREY Fofana MD
[2022-04-19 19:39] VITALS: BP 134/87; PULSE 63; RESP 14; TEMP 36.8; O2SAT 96
== END 2022-04-19 19:43 | disposition home or self-care (01) ==
PROVIDERS: Emergency Provider Physician Assistant; PCP Nurse Practitioner Family
DX: K43.9 Ventral hernia without obstruction or gangrene (principal)
CPT/HCPCS: 36415; 80053; 83690; 99285; 74177; 81003; 81015; 83605; 85025; 99284; J3490

== ENCOUNTER 2022-05-22 07:53 | Day surgery (SDC) | payer OTHER, SELFPAY ==
--- NOTE | 2022-05-21 14:54 | W.ANESPRE ---
General Info Date of Service Date Performed: 05/22/22 Height: 5 ft 8 in Weight: 83.915 kg Body Mass Index (BMI): 28.1 Surgical Procedure: Operation Date: 05/22/22 09:10 Proposed Procedure Side Surgeon p Herniorrhaphy Ventral Tito Martinez MD Meds Allergies and Home Medications Allergies Allergy/AdvReac Type Severity Reaction Status Date / Time No Known Allergies Allergy Verified 05/22/22 08:20 Home Medication Medication Instructions Recorded bimatoprost 0.01 % eye drops 1 drp ophthalmic (eye) DAILY 04/07/22 (Lumigan) brimonidine 0.1 % eye drops 1 drp ophthalmic (eye) BID 04/07/22 bromfenac 0.07 % eye drops 1 drp ophthalmic (eye) BID 04/07/22 dorzolamide 22.3 mg-timolol 6.8 1 drp ophthalmic (eye) BID Glaucoma 04/07/22 mg/mL eye drops (Cosopt) atorvastatin 20 mg tablet 20 mg PO HS 05/21/22 Current Visit Medications: Current Medications Generic Name Dose Route Start Last Admin Trade Name Freq PRN Reason Stop Dose Admin Celecoxib 200 mg 05/22/22 06:00 Celecoxib 200 Mg Cap PO 05/22/22 23:59 PREOP LEONORA Gabapentin 600 mg 05/22/22 06:00 Gabapentin 300 Mg Cap PO 05/22/22 23:59 PREOP LEONORA Ringer's Solution 1,000 mls @ 80 mls/hr 05/22/22 06:00 IV 05/29/22 23:59 INFUSION LEONORA Cefazolin Sodium/Dextrose 2 gm in 50 mls @ 100 mls/hr 05/22/22 06:00 Ancef Duplex IVPB 05/22/22 23:59 PREOP LEONORA IV Miscellaneous Supplies 1 each 05/22/22 06:00 Iv Access IV 05/29/22 23:59 DIRECTED LEONORA Sodium Chloride 0 ml 05/22/22 06:00 Normal Saline Flush 10 Ml Syr IV 05/29/22 23:59 PRN PRN Sodium Chloride 0 ml 05/22/22 06:00 Normal Saline 10 Ml Vial IJ 05/29/22 23:59 DIRECTED PRN Sterile Water 0 ml 05/22/22 06:00 Water,Injection,Sterile 10 Ml Vial IJ 05/29/22 23:59 DIRECTED PRN PFSH Active Problems Active Problems: Problem Status Onset Code BPPV (benign paroxysmal positional vertigo) H81.10 Glaucoma H40.9 Urinary retention 05/04/16 R33.9 Right epididymitis 05/04/16 N45.1 Post-void dribbling 11/20/16 N39.43 IFG (impaired fasting glucose) 07/08/16 R73.01 Hyperlipidemia 07/08/16 E78.5 Medical History Medical History Choledocholithiasis with cholecystitis Choledocholithiasis with obstruction GERD (gastroesophageal reflux disease) Pneumonia (~1989) Surgical History Surgical History Colonoscopy - IV Sedation (10/07/16) ERCP (04/27/16) [facility] Status post cholecystectomy (~04/28/16) Transurethral prostatectomy (05/21/16) [facility] Dr. Ag Tobacco Smoking/Tobacco Use Status: Former Tobacco Use Passive smoking exposure: No Second hand exposure: No Alcohol Alcohol Intake: current Alcohol intake frequency: a few times a week Details: 2-16 oz. Substance Use Substance use: Occasionally Substance use type: marijuana Vital Signs and Lab Results Vital Signs Most Recent Vital Signs in EMR: Temp Pulse Resp BP Pulse Ox 36.6 C 51 L 18 121/76 98 05/22/22 08:11 05/22/22 08:11 05/22/22 08:11 05/22/22 08:11 05/22/22 08:11 Lab Results Blood Type / Crossmatch: No Data to Display Complete Blood Count: No Data to Display Complete Metabolic Panel: No Data to Display Liver Function Panel: No Data to Display Coagulation Panel: No Data to Display Cardiac Panel: No Data to Display Arterial Blood Gas: No Data to Display Venous Blood Gas: No Data to Display Pancreas Panel: No Data to Display Thyroid Panel: No Data to Display Infectious Disease: No Data to Display Blood Cultures: No Data to Display Toxicology Panel: No Data to Display Anesthesia Assessment and Plan Anesthesia History Personal History: No History of Anesthesia Complications Family History: No Family History of Anesthesia Complications Exercise Tolerance Exercise Tolerance: Metabolic Equivalents>4 Cardiac & Pulmonary Exam Cardiac Exam: Normal S1/S2 Heart Sounds Pulmonary Exam: Clear Bilateral Breath Sounds Implantable Cardiac Device Does patient have a Pacemaker or an ICD?: No Airway Exam Known Difficult Airway: No Mallampati Class: 2 Mouth Opening: Normal (> 3cm) Thyromental Distance: Less than 3 cm Neck Range of Motion: Full ROM Neck Circumference: Normal Teeth Condition: Normal Dentition ASA Classification ASA Score: ASA 2 Emergency Case?: No NPO Status NPO Status: NPO Clears >2 hours, Solids >8 hours Anesthesia Plan Resuscitation Status: Full Code Anesthesia Technique: General Anesthesia Airway Planned: LMA Pain Management: Surgeon and patient request nerve block Monitors Used: Standard Monitors Preoperative Comments:: 66 yo male for ventral hernia repair. Sig PMHx: GERD, BPPV, former smoker, occ EtOH/cannabis. Previous Anes: - valero 2 grade 1, easy mask. - LMA 5, easy mask.
--- NOTE | 2022-05-21 21:51 | W.PM.DSUDISC ---
Date of service: 05/22/22 Time of Service: 12:19 Discharge Plan Disposition Patient Disposition: Home Condition: Good Discharge Details Reason For Visit: Hernia repair Attending Provider: Tito Martinez Primary Care Provider: Rossy Garcia Home Meds and New Rx's Prescriptions: New tramadol 50 mg tablet 50 mg PO Q8H PRN (Reason: pain) Qty: 12 0RF Rx Instructions: Take 1 tablet by mouth up to every 8 hours if needed for severe pain. Do not drive while using this medication. Continued dorzolamide-timolol [Cosopt] 22.3-6.8 mg/mL drops 1 drp ophthalmic (eye) BID Rx Instructions: For use in both eyes Lumigan 0.01 % drops 1 drp ophthalmic (eye) DAILY Rx Instructions: For use in both eyes bromfenac 0.07 % drops 1 drp ophthalmic (eye) BID Rx Instructions: For use in the left eye brimonidine 0.1 % drops 1 drp ophthalmic (eye) BID Rx Instructions: For use in both eyes atorvastatin 20 mg tablet 20 mg PO HS Discharge Instructions Instructions: Ventral Hernia Repair (GEN) Additional Instructions: 1. Resume all of your medications. 2. Heating pads and ice packs will be useful for pain. 3. Okay to use tylenol and ibuprofen over the counter as needed. Use tramadol as needed for severe pain. 4. Leave bandage in place for 24 hours, then remove. 5. Shower with warm soapy water. Pat dry. Use a bandaid if needed to protect your clothing. 6. No soaking or tub baths until I see you in the office. 7. No heavy lifting until I see you in the office. 8.Call the office (or go directly to the emergency room after hours) if you notice any of the following: Develop chills (warm to touch), or if you have a thermometer and your temperature is above 101 Difficulty breathing or difficultly swallowing Persistent vomiting Any bleeding ? exceeding one tablespoon 6. Call your physician if the site where your intravenous was started becomes red, swollen, painful, and warm to touch. Referrals: Tito Martinez MD [ [facility] STAFF PHYSICIAN] - Activity:: No heavy lifting Remove Dressings/Wound Care:: 24 hours Shower/Bathe:: 24 hours Diet:: As Tolerated Discharge Orders Discharge Orders: Discharge Order (Routine); Ordered 05/21/22 Ordered By: Tito Martinez DS: Diagnosis Discharge Diagnosis (1) Ventral hernia: Status: Acute Asessment and Plan: Follow-up in the office on June 03 at 1 PM
--- NOTE | 2022-05-21 21:53 | W.PM.OP ---
Date of service: 05/22/22 Time of Service: 12:23 Operative Note Operative Note DATE OF PROCEDURE: 05/22/22 PRE-OP DIAGNOSIS: Ventral hernia POST-OP DIAGNOSIS: same PROCEDURE: Open ventral hernia repair with retrorectus mesh SURGEON: Tito Martinez DRIVEMATIC MACHINE OPERATOR: Margoth Contreras ANESTHESIA TYPE: Local By Surgeon, General LMA/ETT and Other (Bilateral rectus blocks) Refer to Anesthesia Record ESTIMATED BLOOD LOSS: 25 PATHOLOGY: none sent COMPLICATIONS: None Patient was transported to: PACU Patient's condition: stable Implants: Bard polypropylene mesh Indications: Eliseo is a 66-year-old male who presents with a painful ventral hernia. CAT scan demonstrates a ventral hernia in the area of his tenderness Findings: 2 hernia defects. One is immediately above the umbilicus and is approximately 0.5 x 1 cm, the other is located approximately 4 cm cephalad to the umbilicus. This 1 is approximately 1.5 by 1.5 and half centimeters Procedure Description: After the induction of general endotracheal anesthesia, the anesthesia specialist performed bilateral rectus blocks with real-time ultrasound guidance. Next, I prepped and draped the anterior abdominal wall. I used local anesthesia to establish a generous field block over the area of the incision I made a midline incision above the umbilicus. I dissected down to the fascia using combination of sharp as well as Bovie electrocautery. There was a small defect in the midline fascia, which was a bit attenuated that measured approximately 1.5 by 1.5 centimeters. I continued this dissection down to the level of the umbilicus, and encountered another small defect, slightly towards the patient's left side that was approximately 0.5 x 1.0 cm. Because there were 2 hernias here, and the midline portion of the fascia itself was a little bit attenuated, I felt that a retrorectus mesh incorporating repair of both defects was the most durable and safest option. Therefore, I dissected laterally to the rectus sheath on each side. I incised the anterior portion of the rectus sheath, and gently dissected the rectus muscle away from the posterior side. Once this was complete, I closed the posterior portions of the rectus sheath in the midline with a running 2-0 PDS suture. Next, I used a Bard polypropylene 3 x 6 cm mesh over top of the posterior closure. I cut this to fit, and pexied it down onto the posterior fascial sheath with interrupted sutures. Great care was taken to ensure that the rectus muscle laid down above the mesh, and that it was distributed well laterally to the midline closure. Next, I closed the anterior fascia with running PDS suture as well. The skin and subcutaneous layers were closed with interrupted Vicryl stitches, and the skin was closed with a running Monocryl suture. Bandages were applied and the patient was transferred to the recovery unit.
[2022-05-22] VITALS (11 sets, daily range): BP systolic 86–121; BP diastolic 46–76; PULSE 44–51; RESP 13–18; TEMP 36–36.6; O2SAT 94–99; BMI 28.1
[2022-05-22] MEDS: Gabapentin 300 MG CAP 600 MG PO (08:41)
[2022-05-22] MEDS: Celecoxib 200 MG CAP PO (08:41)
[2022-05-22] MEDS: Lactated Ringers 1,000 ML 80 ML IV (08:50)
[2022-05-22] MEDS: ceFAZolin 2 GM/50 ML BAG IVPB (11:23)
--- NOTE | 2022-05-22 12:02 | W.ANESNERVE ---
Nerve Block Single Injection Procedure Date and Time Date Performed: 05/22/22 Procedure Start: 12:02 Location Where Procedure Performed Procedure Location: Operating Room Procedure Stop: 11:26 Reason Performed: Postoperative Analgesia Requesting Provider: Tito Martinez Timeout Performed Timeout Performed: Yes Monitoring Used ECG, Blood Pressure, SpO2 and ETCO2 Sterility Sterility: Hand Hygiene, Surgical Cap, Surgical Mask, Sterile Gloves and Chlorhexidine Sedation Given During Procedure Sedation Given (Indicate Dose Given): No Sedation given Patient Mental Status Patient Mental Status: Performed under general anesthesia Nerve Block 1st Nerve Block: Laterality: Bilateral Block Type: Rectus Sheath (Bilateral) Ultrasound Image Saved?: Yes Needle / Catheter Used: 100mm SonoPlex II Local Anesthetic Bolus (Indicate Dose Given): Injected in 3-5ml increments after negative blood aspiration and Bupivacaine 0.375% Dose:: 30 ml Additives (Indicate Dose Given): Precedex Dose:: 60 mcg Ultrasound: Sterile probe cover and gel used Nerve Stimulator: Not Used Paresthesia: None Procedure Tolerated: No Complications and Patient tolerated well Procedure Outcome: Successful Performed By: Shay Bar
[2022-05-22] MEDS: Bupivacaine 0.25% Pres-Free W/EPI 30 ML VIAL (12:20)
--- NOTE | 2022-05-22 14:44 | W.ANESPOSTOP ---
Postoperative Evaluation Date, Time and Location Date Performed: 05/22/22 Time Performed: 14:44 Patient Location: Day Surgery Unit Vital Signs Most Recent Imported Vital Signs: Most Recent Vital Signs Temp Pulse Resp BP Pulse Ox 36.4 C L 44 L 16 96/66 L 94 05/22/22 13:40 05/22/22 13:40 05/22/22 13:40 05/22/22 13:40 05/22/22 13:40 Pain Score Most Recent Pain Score: Most Recent Pain Score Pain Level 0 05/22/22 13:40 Assessment Mental Status: Awake (Alert & Oriented to Patient Baseline) Airway and Respiratory Function: Patent airway with normal (patient baseline) respiratory exam Cardiovascular Function: Hemodynamically Stable Hydration Status: Adequately Hydrated Nausea & Vomiting: No Nausea or Vomiting Pain: Pt. Denies Any Pain Peripheral Nerve Block: Regional nerve block not resolved at time of post operative discharge
== END 2022-05-22 14:48 | disposition home or self-care (01) ==
PROVIDERS: PCP Nurse Practitioner Family; Visit Provider Surgery
PROC: (CPT 49591; principal; 2022-05-22 09:00)
DX: K43.9 Ventral hernia without obstruction or gangrene (principal); R73.01 Impaired fasting glucose; E78.5 Hyperlipidemia, unspecified
CPT/HCPCS: 49591; 76942; C1781; J0690; J1100; J2405; J2704; J3475

== ENCOUNTER 2022-08-03 14:14 | Emergency (ER) | payer OTHER, SELFPAY ==
[2022-08-03 14:19] VITALS: BP 125/82; PULSE 67; RESP 16; TEMP 36.1; O2SAT 96
--- NOTE | 2022-08-03 15:14 | ED.GENADUL_ITS ---
Discharge Plan Disposition Patient Disposition: Home Discharge Details Clinical Impression: History of falling, Acute pain of left knee, Right elbow pain, Upper back pain on right side Primary Care Provider: Rossy Garcia ED Provider: Frederick Pardo Home Meds and New Rx's Prescriptions: New lidocaine [Lidoderm] 5 % adhesive patch,medicated 1 patch topical DAILY Qty: 15 0RF Rx Instructions: leave on most painful area for up to 12 hrs Continued dorzolamide-timolol [Cosopt] 22.3-6.8 mg/mL drops 1 drp ophthalmic (eye) BID Rx Instructions: For use in both eyes Lumigan 0.01 % drops 1 drp ophthalmic (eye) DAILY Rx Instructions: For use in both eyes bromfenac 0.07 % drops 1 drp ophthalmic (eye) BID Rx Instructions: For use in the left eye brimonidine 0.1 % drops 1 drp ophthalmic (eye) BID Rx Instructions: For use in both eyes atorvastatin 20 mg tablet 20 mg PO HS tramadol 50 mg tablet 50 mg PO Q8H PRN (Reason: pain) Qty: 12 0RF Rx Instructions: Take 1 tablet by mouth up to every 8 hours if needed for severe pain. Do not drive while using this medication. Discharge Instructions Instructions: Knee Pain (ED) Additional Instructions: Please read all of the information that accompanies these instructions. You were seen in the emergency department for your knee and elbow pain along with your back pain. Your x-ray showed no sign of any fractures. Please schedule an appointment with your primary care provider later this week as needed. Please return to the emergency department if you develop nausea or vomiting that does not stop or if you develop any shortness of breath. You are receiving a prescription for a patch for numbing medicine which you should use for your back pain. For your pain please take medications as follows: 1. Take acetaminophen (Tylenol), 1,000 mg (two 500 mg tabs) every 6 hours 2. Take ibuprofen (Advil), 200 mg every 6 hours. Stand Alone Forms: Work Release Discharge Data Discharge Date/Time-TO BE ENTERED AT DEPARTURE: 08/03/22 17:14 Medical Decision Making This is an overall quite well-appearing normothermic and not tachycardic 66-year-old male status post fall with primary survey intact and reassuring shock index. On secondary survey patient does have 3 areas of tenderness. His right upper back is tender but there is no obvious signs of trauma. He has bilateral equal breath sounds and no hypoxia so my suspicion is exceedingly low for pneumothorax based on his relatively limited mechanism of injury and lack of trauma to his chest. I considered referred pain given that his right upper back pain was near his scapula however he has a soft nontender abdomen and has not had any trauma to his abdomen nor any nausea nor any vomiting so my suspicion for intra-abdominal injury is exceedingly low. He had no midline cervical spinal nor thoracic nor lumbar spinal tenderness so I did not feel that he required a CT scan of his back. Concerning his right elbow injury he is able to fully flex and extend at the elbow so my suspicion is low for acute osseous abnormalities however will obtain plain films. Patient is alos able to fully pronate and supinate his right upper extremity. Concerning his left knee pain he does have diffuse knee tenderness but no obvious laxity on examination n or any lacerations. He is able to straight leg raise making my suspicion for quadriceps tendon injury exceedingly low. No head strike to suggest benefit from CT head. No neck pain to suggest benefit from CT cervical spine. If his plain films are negative for any acute osseous abnormalities will discharge with recommendations for acetaminophen and low-dose ibuprofen and Lidoderm patches. We will give patient return indications including any shortness of breath any nausea or vomiting or any other concerns. 5 PM Plain films negative for any acute osseous abnormalities. I discharged patient with a work note for several days off of work. HPI General Date/Time Provider Initiated Documentation: 08/03/22 15:14 . HPI Narrative: This is a right-handed 66-year-old male arriving via private vehicle following a fall at approximately 1:30 PM this afternoon. 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 He inadvertently backed into a puddle and was slipping backwards. He caught himself but lost his balance subsequently and fell forwards. He struck his left knee and his right elbow. He feels as if he strained his right upper back on the way down. He has not yet taken any medications. He is not anticoagulated. He has not been nauseous nor vomiting. He has had no shortness of breath. Denies any other injuries. He has been ambulatory since his fall. He drove himself to the emergency department. He did not strike his head, chest nor abdomen. He did not lose consciousness. Related Data Home Medications Medication Instructions Recorded Confirmed bimatoprost 0.01 % eye drops 1 drp ophthalmic (eye) DAILY 04/07/22 06/03/22 (Lumigan) brimonidine 0.1 % eye drops 1 drp ophthalmic (eye) BID 04/07/22 06/03/22 bromfenac 0.07 % eye drops 1 drp ophthalmic (eye) BID 04/07/22 06/03/22 dorzolamide 22.3 mg-timolol 6.8 1 drp ophthalmic (eye) BID Glaucoma 04/07/22 06/03/22 mg/mL eye drops (Cosopt) atorvastatin 20 mg tablet 20 mg PO HS 05/21/22 06/03/22 tramadol 50 mg tablet 50 mg PO Q8H PRN pain #12 tabs 05/22/22 06/03/22 lidocaine 5 % topical patch 1 patch topical DAILY #15 ea 08/03/22 (Lidoderm) Previous Rx's Medication Instructions Recorded tramadol 50 mg tablet 50 mg PO Q8H PRN pain #12 tabs 05/22/22 lidocaine 5 % topical patch 1 patch topical DAILY #15 ea 08/03/22 (Lidoderm) Allergies Allergy/AdvReac Type Severity Reaction Status Date / Time No Known Allergies Allergy Verified 08/03/22 14:23 General Stated Complaint: Orthopedic CAYDEN: 4 PFSH All Active Problems (Updated 08/03/22 @ 15:25 by Frederick Pardo MD) History of falling (Acute) Acute pain of left knee (Acute) Right elbow pain (Acute) Upper back pain on right side (Acute) Ventral hernia (Acute) BPPV (benign paroxysmal positional vertigo) (Acute) Glaucoma (Chronic) Urinary retention (Acute 05/04/16) Right epididymitis (Acute 05/04/16) Post-void dribbling (Acute 11/20/16) IFG (impaired fasting glucose) (Chronic 07/08/16) Hyperlipidemia (Chronic 07/08/16) 07/2018 labs: good response to moderate intensity statin, continue Medical History Choledocholithiasis with cholecystitis Choledocholithiasis with obstruction GERD (gastroesophageal reflux disease) Pneumonia (~1989) Surgical History Colonoscopy - IV Sedation (10/07/16) ERCP (04/27/16) [facility] Status post cholecystectomy (~04/28/16) Transurethral prostatectomy (05/21/16) [facility] Dr. Ag Family History Mother , CVA at age 65. Stroke MS (multiple sclerosis) Depression Father , Lung CA at age 75. Heart disease Myocardial infarction Lung cancer Smoker Brother Diabetes Depression Heart disease Maternal Uncle Diabetes Maternal Uncle , Prostate CA at age 72. Prostate cancer Maternal Uncle No problems noted. Social History Smoking/Tobacco Use Status: Former Tobacco Use Quit Date: 03/01/88 Tobacco: How many years used: 8 Second Hand Exposure: No Smoking risk assessment performed?: Yes Alcohol Intake: current Alcohol Intake frequency: a few times a week Details: 2-16 oz. 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 Pets and animals: Yes Pets and animals: cat(s) and dog(s) Sexually active: Yes Do you think of yourself as: straight/heterosexual Current gender identity: male What is your relationship status?: living with partner How often do you talk on the phone with friends or family?: decline to answer How often do you get together with friends or relatives?: decline to answer How often do you attend sikh or confucianism services?: decline to answer Do you belong to any clubs or organized social groups?: no Panel score (0-1 are the most socially isolated patients): 1 What type of physical activity do you participate in: none Kavya/Christian: Faith Seatbelt use: always Helmet use: No Drive intox or ride w/intox petroleum transport driver: No Water heater temp set <120 deg: Yes Working smoke detector in home: Yes Fire extinguisher in home: Yes Carbon monox detector in home: Yes Firearms in home: No Do you feel safe at home: Yes Do you feel safe in your relationship?: Yes Exam Narrative Exam Narrative: General: Well-appearing in no acute distress speaking in complete sentences. Head: Normocephalic, atraumatic. Eye: Extraocular eye movements intact. No conjunctival injection. No scleral icterus. Ear, nose, mouth, throat: Grossly normal inspection. Normal voice, handling secretions normally. Neck: Trachea midline. No midline cervical spinal tenderness. Cardiovascular: Well-perfused distal extremities. Regular rate and rhythm Respiratory: Nonlabored respiration. Clear lungs bilaterally. Equal breath sounds Back: No step-offs nor deformities. Mid scapular line right upper back there is a small area of tenderness. No significant signs of trauma. No lacerations no erythema. Gastrointestinal: Nondistended abdomen. Soft soft nontender. Musculoskeletal: Moving all 4 extremities spontaneously. Right upper extremity: Mild erythema to right elbow. Patient is able to fully flex and extend at the elbow. He can fully pronate and supinate. He has intact sensation and motor function in the radial, median, and ulnar nerve distributions of the right hand. 2+ right radial pulse. Cap refill less than 2 seconds in the right hand. Left lower extremity: Mild erythema to left knee which is mildly swollen compared to contralateral knee. Patient is able to fully flex and extend at the left knee. He has no significant laxity on valgus or varus stress testing. He is able to straight leg raise. He is intact motor function in his left lower extremity to foot with 5 out of 5 strength in dorsi and plantarflexion. Skin: Normal for age and race, grossly normal temperature and turgor. No acute rash. Neurologic: Alert and appropriate, no apparent acute deficits. GCS 15. Psychiatric: Mood and manner are appropriate. Grooming and personal hygiene are appropriate. Course Vital Signs Vital signs: Vital Signs Temperature 36.1 C L 08/03/22 14:19 Pulse 67 08/03/22 14:19 Respiratory Rate 16 08/03/22 14:19 Blood Pressure 125/82 08/03/22 14:19 Pulse Oximetry 96 08/03/22 14:19 Temperature 36.1 C L 08/03/22 14:19 Temperature Source Skin 08/03/22 14:19 Pulse 67 08/03/22 14:19 Respiratory Rate 16 08/03/22 14:19 Blood Pressure 125/82 08/03/22 14:19 Blood Pressure Position Sitting 08/03/22 14:19 Pulse Oximetry 96 08/03/22 14:19 Oxygen Delivery Method Room Air 08/03/22 14:19 Oxygen Flow Rate 0 08/03/22 14:19 Pain Level 4 08/03/22 14:19
--- NOTE | 2022-08-03 15:15 | DI.RAD_ITS ---
Exam(s) XR KNEE LT 3V AP,LAT,ROXY EXAM: XR KNEE LT 3V AP,LAT,ROXY CLINICAL HISTORY: Left knee pain status post fall. TECHNIQUE: 2D digital imaging was performed of the left knee. Three images were obtained. AP, late ral and PA tunnel views were obtained. COMPARISON: No priors for comparison. FINDINGS: BONES: No acute fracture is present. No bony destructive lesion is seen. JOINTS: The knee is normally aligned. No joint effusion is seen. SOFT TISSUE: Atherosclerosis is present. IMPRESSION: No acute abnormality. DATA REPOSITORY: RADIATION DOSE DELIVERED:
--- NOTE | 2022-08-03 15:15 | DI.RAD_ITS ---
Exam(s) XR ELBOW RT COMPLETE EXAM: XR ELBOW RT COMPLETE CLINICAL HISTORY: Right elbow pain status post fall. TECHNIQUE: 2D digital imaging was performed of the left elbow. Three images were obtained. AP, lat eral and oblique views were obtained. COMPARISON: No exams were available for comparison FINDINGS: BONES: No acute fracture is present. No bony destructive lesion is seen. JOINTS: The elbow is normally aligned. No joint effusion is seen. SOFT TISSUE: Normal. IMPRESSION: Unremarkable radiographs of the right elbow. DATA REPOSITORY: RADIATION DOSE DELIVERED:
[2022-08-03] MEDS: Acetaminophen 500 MG TAB 1000 MG PO (15:27)
[2022-08-03] MEDS: Ibuprofen 200 MG TAB PO (15:27)
[2022-08-03] MEDS: Lidocaine 5% Patch 1 PATCH TP (15:28)
== END 2022-08-03 17:14 | disposition home or self-care (01) ==
PROVIDERS: Emergency Provider Emergency Medicine; PCP Nurse Practitioner Family
DX: M25.521 Pain in right elbow (principal); M25.562 Pain in left knee; M54.9 Dorsalgia, unspecified; W19.XXXA Unspecified fall, initial encounter
CPT/HCPCS: 73562; 99284; 73080

== ENCOUNTER 2022-12-23 03:40 | Outpatient (CLI) | payer OTHER, SELFPAY ==
[2022-12-23 11:44] LABS: ALT 26 U/L (16-63); AST 17 U/L (15-37); Albumin 3.8 g/dL (3.4-5.0); Alkaline Phosphatase 66 U/L (46-116); Anion Gap 7.6 mmol/L (3-11); BUN 16 mg/dL (7-18); CO2 28.4 mmol/L (21.0-32.0); CREATININE 1.1 mg/dL (0.70-1.30); Calcium 9.2 mg/dL (8.5-10.1); Calculated LDL 56 mg/dL (<100); Chloride 106 mmol/L (98-107); Cholesterol 120 mg/dL (<200); Estimated GFR 74.04 (mL/min/1.73m2); Glucose 94 mg/dL (74-106); HDL Cholesterol 57 mg/dL (40-60); Potassium 4.3 mmol/L (3.5-5.1); Sodium 142 mmol/L (136-145); Triglyceride 37 mg/dL (<150)
== END 2022-12-23 03:41 | disposition home or self-care (01) ==
LOC: LBO 03:40
PROVIDERS: Absent Provider Family Medicine; PCP Nurse Practitioner Family; Visit Provider Family Medicine
DX: E78.5 Hyperlipidemia, unspecified (principal)
CPT/HCPCS: 36415; 80053; 80061

== ENCOUNTER 2024-01-03 12:27 | Outpatient (CLI) | payer OTHER, SELFPAY ==
--- NOTE | 2024-01-03 11:45 | DI.RAD_ITS ---
Exam(s) XR RIBS RT W PA LAT CHEST CLINICAL HISTORY: R posterior lower rib pain R07.81 PLEURODYNIA. COMPARISON: CR CHEST 2 VIEWS PA,LAT from 08/02/2017 TECHNIQUE:: PA and lateral views of the chest and four views of the right ribs were performed. BB m arkers are placed over the area of patient pain. FINDINGS: LUNGS:Clear. No pleural abnormality seen. HEART: Normal. MEDIASTINUM: The aorta mildly tortuous. BONES: No displaced rib fracture is seen. No bony destructive lesion is seen. OTHER FINDINGS: Degenerative changes in the thoracic spine. Right upper quadrant surgical clips. IMPRESSION: 1. Unremarkable radiographic appearance of the right ribs. 2. No acute pulmonary findings.
== END 2024-01-03 12:47 ==
PROVIDERS: PCP Family Medicine; Visit Provider Family Medicine
DX: R07.81 Pleurodynia (principal)
CPT/HCPCS: 71046; 71100

== ENCOUNTER 2025-01-02 10:41 | Outpatient (CLI) | payer OTHER, SELFPAY ==
[2025-01-02 12:02] LABS: ALT 30 U/L (16-63); AST 23 U/L (15-37); Albumin 3.6 g/dL (3.4-5.0); Alkaline Phosphatase 67 U/L (46-116); Anion Gap 8.1 mmol/L (3-11); BUN 13 mg/dL (7-18); Bilirubin, Total 1.0 mg/dL (0.2-1.0); CO2 27.9 mmol/L (21.0-32.0); Calcium 8.8 mg/dL (8.5-10.1); Chloride 106 mmol/L (98-107); Glucose 88 mg/dL (74-106); Lipase 59 U/L (<78); Potassium 4.0 mmol/L (3.5-5.1); Sodium 142 mmol/L (136-145); Total Protein 6.7 g/dL (6.4-8.2)
== END 2025-01-02 10:42 | disposition home or self-care (01) ==
PROVIDERS: PCP Family Medicine; Visit Provider Family Medicine
DX: R10.9 Unspecified abdominal pain (principal)
CPT/HCPCS: 36415; 80053; 83690